=== PATIENT | female | born 1995 | race Hispanic/Latino ===

== ENCOUNTER 2018-12-04 14:34 | Inpatient (IN) ==
[2018-12-04] MEDS ORDERED: CITRIC ACID/SODIUM CITRATE 30 ML CUP PO PRN (14:56)
[2018-12-04] MEDS ORDERED: Nalbuphine Inj 20 MG/ML Ampule IVP PRN ×2 (14:56→18:13)
[2018-12-04] MEDS ORDERED: diphenhydrAMINE 50 MG/1 ML VIAL IVP PRN ×2 (14:56→18:13)
[2018-12-04] MEDS ORDERED: OXYTOCIN 10 UNIT/1 ML IM PRN (14:56)
[2018-12-04] MEDS ORDERED: MISOPROSTOL 200 MCG TABLET RECTAL PRN (14:56)
[2018-12-04] MEDS ORDERED: ONDANSETRON 4 MG/2 ML VIAL IVP PRN ×2 (14:56→18:13)
[2018-12-04] MEDS ORDERED: CefOXitin Inj 2 GM in Sodium Chloride 0.9% 100 ML IV PRN (14:56)
[2018-12-04] MEDS ORDERED: Lidocaine 1% 10 MG/ML - 20 ML VIAL SUBCUT PRN (14:56)
[2018-12-04] MEDS ORDERED: NALOXONE 0.4 MG/1 ML VIAL IVP PRN (14:56)
[2018-12-04] MEDS ORDERED: Naloxone Inj 0.01 MG in Sodium Chloride 0.9% vial 1 ML IVP PRN (14:56)
[2018-12-04] MEDS ORDERED: fentaNYL Inj 100 MCG/2 ML VIAL IV PRN (14:56)
[2018-12-04] MEDS ORDERED: BUTORPHANOL TARTRATE 2 MG/1 ML VIAL IVP PRN (14:56)
[2018-12-04] MEDS ORDERED: CALCIUM CARBONATE 500 MG (TUMS) CHEWABLE TABLET PO PRN ×2 (14:56→18:13)
[2018-12-04] MEDS ORDERED: LIDOCAINE HCL 2 % 10 ML JELLY URO-JECT TOPICAL PRN ×2 (14:56→18:13)
[2018-12-04] MEDS ORDERED: Phenylephrine Inj 50 MCG in Sodium Chloride 0.9% vial 0.5 ML IVP PRN (14:56)
[2018-12-04] MEDS ORDERED: Carboprost Inj 250 MCG/ML AMP IM PRN (14:56)
[2018-12-04] MEDS ORDERED: FAMOTIDINE 20 MG/2 ML VIAL IVP PRN ×2 (14:56)
[2018-12-04] MEDS ORDERED: METHYLERGONOVINE MALEATE 0.2 MG/1 ML VIAL IM PRN (14:56)
[2018-12-04] MEDS ORDERED: LIDOCAINE W/ SODIUM BICARB 0.5 ML SYR SUBD PRN (14:56)
[2018-12-04] MEDS ORDERED: Metoclopramide Inj 10 MG/2 ML VIAL IV PRN (14:56)
[2018-12-04] MEDS ORDERED: TERBUTALINE SULFATE 1 MG/1 ML SDV SUBCUT PRN (14:56)
[2018-12-04] MEDS ORDERED: Oxytocin 20 Units + LR 20 UNIT/1,000 ML BAG IV SCH ×2 (15:00→18:13)
[2018-12-04] MEDS: Lactated Ringers-OB Dept 1,000 ML PRIMARY IV SCH ×2 (15:00→15:50)
[2018-12-04 15:12] LABS: Hematocrit [HCT] 41.4 % (37.0-47.0); Hemoglobin [HGB] 14.4 g/dL (12.0-16.0); MEAN CORPUSCULAR HGB CONC 34.8 g/dL (33-37); MEAN CORPUSCULAR VOLUME 85.5 FL (81-99); RED BLOOD COUNT 4.84 10^6/uL (4.20-5.40)
[2018-12-04] MEDS ORDERED: Lactated Ringers 2,000 ML PRIMARY IV ONE (15:35)
[2018-12-04] MEDS ORDERED: ACETAMINOPHEN 325 MG TABLET PO PRN (18:13)
[2018-12-04] MEDS ORDERED: Lactated Ringers 1,000 ML PRIMARY IV SCH (18:13)
[2018-12-04] MEDS ORDERED: LANOLIN HPA 40 GM TUBE TOPICAL PRN (18:13)
[2018-12-04] MEDS ORDERED: Ondansetron ODT Tab 4 MG TAB PO PRN (18:13)
[2018-12-04] MEDS ORDERED: diphenhydrAMINE 25 MG CAPSULE PO PRN (18:13)
[2018-12-04] MEDS ORDERED: Lidocaine 1% 10 MG/ML - 20 ML VIAL INTRADERM PRN (18:13)
[2018-12-04] MEDS ORDERED: DIPH,PERTUSS,TET(ADACEL) VAC/PF 0.5 ML (Tdap) IM ONE (18:13)
[2018-12-04] MEDS: BENZOCAINE/MENTHOL SPRAY 56 GM BOTTLE TOPICAL PRN (18:32)
[2018-12-04] MEDS: GLYCERIN/WITCH HAZEL 1 BOX TOPICAL PRN (18:32)
[2018-12-04] MEDS: KETOROLAC 15 MG/1 ML VIAL IVP SCH (18:34)
[2018-12-04] MEDS: HYDROcodone-APAP 5 MG -325 MG TABLET PO PRN (20:47)
[2018-12-05] MEDS: KETOROLAC 15 MG/1 ML VIAL IVP SCH ×4 (00:11→17:47)
[2018-12-05 05:21] LABS: Hematocrit [HCT] 33.6 % (37.0-47.0); Hemoglobin [HGB] 11.2 g/dL (12.0-16.0); MEAN CORPUSCULAR HGB CONC 33.3 g/dL (33-37); MEAN CORPUSCULAR VOLUME 89.4 FL (81-99); MEAN PLATELET VOLUME 11.7 FL (7.4-12.2); RED BLOOD COUNT 3.76 10^6/uL (4.20-5.40)
[2018-12-05] MEDS: IBUPROFEN 800 MG TABLET PO PRN ×2 (06:28→16:18)
[2018-12-05] MEDS: DOCUSATE 100 MG CAPSULE PO SCH ×2 (08:24→20:31)
[2018-12-05] MEDS: Prenatal Multivitamin Tab 1 TAB TAB PO SCH (08:24)
[2018-12-05] MEDS: GLYCERIN/WITCH HAZEL 1 BOX TOPICAL PRN (16:19)
[2018-12-05] MEDS: HYDROcodone-APAP 5 MG -325 MG TABLET PO PRN (16:19)
[2018-12-05] MEDS: BENZOCAINE/MENTHOL SPRAY 56 GM BOTTLE TOPICAL PRN (16:19)
[2018-12-06] MEDS: Prenatal Multivitamin Tab 1 TAB TAB PO SCH (09:52)
[2018-12-06] MEDS: DOCUSATE 100 MG CAPSULE PO SCH (09:52)
[2018-12-06] MEDS: IBUPROFEN 800 MG TABLET PO PRN (09:53)
== END 2018-12-06 14:45 | disposition home or self-care (01) | DRG 807 ==
LOC: OBOP 14:34 → OBIP 14:56
PROVIDERS: ADMIT Obstetrics & Gynecology; ATTEND Obstetrics & Gynecology